=== PATIENT | female | born 1995 | race Caucasian/White ===

== ENCOUNTER 2016-04-23 22:14 | Emergency (ER) | payer OTHER ==
[2016-04-23 22:22] VITALS: RESP 16
--- NOTE | 2016-04-23 22:45 | ED ---
Fall HPI - General Chief Complaint: Fall Stated Complaint: Fall/struck head Time Seen by Provider: 04/23/16 22:35 Source: patient, RN notes reviewed Mode of arrival: wheelchair Limitations: no limitations - History of Present Illness Initial Comments: 20-year-old female presents emergency Department chief complaint head injury. Patient states she tripped over a baby gate fell backwards striking her head onto a wooden kitchen chair. Patient states that she is currently taking Lovenox prophylactically during her secondary to history of blood clots. She does complain of a headache. Patient denies blurred vision, vomiting. Patient states that she does have some nausea but still she had nausea prior to her head injury. Patient has a focal weakness. Denies any chest pain, shortness breath, neck pain. Significant other on room states that she's been acting normal. She has not taken any acetaminophen prior arrival. - Related Data Home Medications Medication Instructions Recorded Confirmed Enoxaparin [Lovenox] 40 mg SQ DAILY 04/23/16 04/23/16 Previous Rx's Medication Instructions Recorded Ibuprofen [Motrin] 200 - 400 mg PO Q6HR PRN #30 tab 09/29/13 Allergies Allergy/AdvReac Type Severity Reaction Status Date / Time No Known Allergies Allergy Verified 04/23/16 22:22 Review of Systems ROS Statement: Those systems with pertinent positive or pertinent negative responses have been documented in the HPI. ROS Other: All systems not noted in ROS Statement are negative. Past Medical History Past Medical History: No Reported History History of Any Multi-Drug Resistant Organisms: None Reported Past Surgical History: No Surgical Hx Reported Past Anesthesia/Blood Transfusion Reactions: No Reported Reaction Past Psychological History: No Psychological Hx Reported Smoking Status: Never smoker Past Alcohol Use History: Occasional Past Drug Use History: None Reported General Exam Limitations: no limitations General appearance: alert, in no apparent distress Head exam: Present: atraumatic, normocephalic, normal inspection Eye exam: Present: normal appearance, PERRL, EOMI. Absent: scleral icterus, conjunctival injection, periorbital swelling ENT exam: Present: normal exam, normal oropharynx, mucous membranes moist Neck exam: Present: normal inspection. Absent: tenderness, meningismus, lymphadenopathy Respiratory exam: Present: normal lung sounds bilaterally. Absent: respiratory distress, wheezes, rales, rhonchi, stridor Cardiovascular Exam: Present: regular rate, normal rhythm, normal heart sounds. Absent: systolic murmur, diastolic murmur, rubs, gallop, clicks Neurological exam: Present: alert, oriented X3, CN II-XII intact, reflexes normal. Absent: motor sensory deficit Skin exam: Present: warm, dry, intact, normal color. 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 Patient's CT shows no acute abnormality. Patient has no neurological deficits. Patient was given return parameters and rediscussed delayed bleed. Patient agrees to be and discharged at this time. Disposition Clinical Impression: Head injury, Fall Disposition: HOME SELF-CARE Condition: Stable Instructions: Head Injury (ED) Additional Instructions: Please return to the Emergency Department if symptoms worsen or any other concerns. Time of Disposition: 23:26
--- NOTE | 2016-04-23 22:56 | CT ---
EXAMINATION TYPE: CT brain wo con DATE OF EXAM: 04/23/2016 10:50 PM COMPARISON: NONE HISTORY: fall CT DLP: 997.20 mGycm Automated exposure control for dose reduction was used. FINDINGS: The ventricles and sulci appear normal. There is no mass effect nor midline shift. There is no sign o f intracranial hemorrhage. The calvarium is intact. IMPRESSION: Normal unenhanced head CT scan.
[2016-04-23 23:17] VITALS: BP 111/69; PULSE 90; TEMP 98.5
== END 2016-04-23 23:52 | disposition home or self-care (01) ==
LOC: EC 22:14
DX: O26.892 Other specified pregnancy related conditions, second trimester (principal); S09.90XA Unspecified injury of head, initial encounter; Z3A.16 16 weeks gestation of pregnancy; W01.0XXA Fall on same level from slipping, tripping and stumbling without subsequent striking against object, initial encounter; Z79.01 Long term (current) use of anticoagulants; Z86.718 Personal history of other venous thrombosis and embolism
CPT/HCPCS: 70450; 99283

== ENCOUNTER 2016-05-06 06:24 | Emergency (ER) | payer OTHER ==
[2016-05-06] MEDS ORDERED: SODIUM CHLORIDE 0.9% 500 ML IV STA (07:32)
--- NOTE | 2016-05-06 07:36 | ED ---
Back Pain HPI - General Chief Complaint: Back Pain/Injury Stated Complaint: chest pain Time Seen by Provider: 05/06/16 07:09 Source: patient Limitations: no limitations - History of Present Illness Initial Comments: This patient is a 20-year-old woman who complained of some left-sided back pain that came on yesterday about 11 AM. Patient states that she had taken some laundry downstairs and then when she went back upstairs noted pain. She states she felt better for a while but it returned on the afternoon when she was making dinner. She states that other than that she feels a bit fatigued or rundown. In reviewing the patient's records she is taking Lovenox daily prophylactically. The patient developed pulmonary embolus after the delivery of her last child. The patient states that she is not having any symptoms similar to the ones she had with a pulmonary embolus. She is not having pain in the chest or thoracic back. She states not having any dyspnea, tachycardia, lightheadedness or syncope, hemoptysis, fever, leg pain or swelling. MD Complaint: back pain Onset/Timin -: hour(s) Similar Symptoms Previously: No Place: home Radiation: none Severity: moderate Quality: dull Consistency: constant Improves With: none Worsens With: none Context: other Associated Symptoms: denies other symptoms - Related Data Home Medications Medication Instructions Recorded Confirmed Enoxaparin [Lovenox] 40 mg SQ DAILY 04/23/16 05/06/16 Previous Rx's Medication Instructions Recorded Amoxicillin 500 mg PO Q8H #21 capsule 05/06/16 Allergies Allergy/AdvReac Type Severity Reaction Status Date / Time No Known Allergies Allergy Verified 05/06/16 06:32 Review of Systems ROS Statement: Those systems with pertinent positive or pertinent negative responses have been documented in the HPI. ROS Other: All systems not noted in ROS Statement are negative. Constitutional: Denies: fever, chills, weakness Respiratory: Denies: cough, dyspnea Cardiovascular: Denies: chest pain, palpitations, dyspnea on exertion, orthopnea , edema, syncope Gastrointestinal: Denies: abdominal pain, nausea, vomiting, diarrhea, melena, hematochezia Genitourinary: Denies: dysuria, hematuria, discharge, abnormal menses Musculoskeletal: Reports: as per HPI, back pain Skin: Denies: rash Neurological: Denies: headache, weakness, numbness Past Medical History Past Medical History: No Reported History Additional Past Medical History / Comment(s): murmur History of Any Multi-Drug Resistant Organisms: None Reported Past Surgical History: No Surgical Hx Reported Past Anesthesia/Blood Transfusion Reactions: No Reported Reaction Past Psychological History: No Psychological Hx Reported Smoking Status: Never smoker Past Alcohol Use History: None Reported Past Drug Use History: None Reported General Exam Limitations: no limitations General appearance: alert, in no apparent distress Head exam: Present: atraumatic, normocephalic Eye exam: Present: normal appearance, PERRL. Absent: scleral icterus, conjunctival injection ENT exam: Present: normal oropharynx, mucous membranes moist Neck exam: Present: normal inspection Respiratory exam: Present: normal lung sounds bilaterally. Absent: respiratory distress, wheezes, rales, rhonchi, stridor Cardiovascular Exam: Present: regular rate, normal rhythm, normal heart sounds. Absent: systolic murmur, diastolic murmur, rubs, gallop GI/Abdominal exam: Present: soft, normal bowel sounds, other (Fundus palpable in the suprapubic area). Absent: distended, tenderness, guarding, rebound, rigid, mass Extremities exam: Present: normal inspection, normal capillary refill. Absent: pedal edema, calf tenderness Back exam: Present: normal inspection. Absent: CVA tenderness (R), CVA tenderness (L), paraspinal tenderness, vertebral tenderness Neurological exam: Present: alert Skin exam: Present: warm, dry, intact, normal color. Absent: rash Course Vital Signs 05/06/16 05/06/16 05/06/16 06:28 07:25 09:06 Temperature 98.1 F 98.7 F Pulse Rate 81 82 69 Respiratory 16 16 14 Rate Blood Pressure 122/74 112/55 112/55 O2 Sat by Pulse 100 99 100 Oximetry Medical Decision Making - Lab Data Result diagrams: 05/06/16 07:43 05/06/16 07:43 Lab Results 05/06/16 05/06/16 05/06/16 Range/Units 07:43 07:43 07:43 WBC 6.5 (3.8-10.6) k/uL RBC 3.60 L (3.80-5.40) m/uL Hgb 11.7 (11.4-16.0) gm/dL Hct 33.4 L (34.0-46.0) % MCV 92.7 (80.0-100.0) fL MCH 32.4 (25.0-35.0) pg MCHC 34.9 (31.0-37.0) g/dL RDW 13.1 (11.5-15.5) % Plt Count 237 (150-450) k/uL Neutrophils % 67 % Lymphocytes % 26 % Monocytes % 5 % Eosinophils % 1 % Basophils % 0 % Neutrophils # 4.3 (1.3-7.7) k/uL Lymphocytes # 1.7 (1.0-4.8) k/uL Monocytes # 0.3 (0-1.0) k/uL Eosinophils # 0.1 (0-0.7) k/uL Basophils # 0.0 (0-0.2) k/uL D-Dimer (<0.60) mg/L FEU Sodium 137 (137-145) mmol/L Potassium 3.9 (3.5-5.1) mmol/L Chloride 107 (98-107) mmol/L Carbon Dioxide 23 (22-30) mmol/L Anion Gap 7 mmol/L BUN 7 (7-17) mg/dL Creatinine 0.51 L (0.52-1.04) mg/dL Est GFR (MDRD) Af Amer >60 (>60 ml/min/1.73 sqM) Est GFR (MDRD) Non-Af >60 (>60 ml/min/1.73 sqM) Glucose 75 (74-99) mg/dL Calcium 8.7 (8.4-10.2) mg/dL Urine Color Yellow Urine Appearance Clear (Clear) Urine pH 6.5 (5.0-8.0) Ur Specific [place] 1.012 (1.001-1.035) Urine Protein Negative (Negative) Urine Glucose (UA) Negative (Negative) Urine Ketones Negative (Negative) Urine Blood Negative (Negative) Urine Nitrate Negative (Negative) Urine Bilirubin Negative (Negative) Urine Urobilinogen <2.0 (<2.0) mg/dL Ur Leukocyte Esterase Moderate H (Negative) Urine WBC 2 (0-5) /hpf Ur Squamous Epith Cells 3 (0-4) /hpf Urine Bacteria Few H (None) /hpf Urine Mucus Rare H (None) /hpf Urine Sperm Occasional H (None) /hpf 05/06/16 Range/Units 07:43 WBC (3.8-10.6) k/uL RBC (3.80-5.40) m/uL Hgb (11.4-16.0) gm/dL Hct (34.0-46.0) % MCV (80.0-100.0) fL MCH (25.0-35.0) pg MCHC (31.0-37.0) g/dL RDW (11.5-15.5) % Plt Count (150-450) k/uL Neutrophils % % Lymphocytes % % Monocytes % % Eosinophils % % Basophils % % Neutrophils # (1.3-7.7) k/uL Lymphocytes # (1.0-4.8) k/uL Monocytes # (0-1.0) k/uL Eosinophils # (0-0.7) k/uL Basophils # (0-0.2) k/uL D-Dimer 0.58 (<0.60) mg/L FEU Sodium (137-145) mmol/L Potassium (3.5-5.1) mmol/L Chloride (98-107) mmol/L Carbon Dioxide (22-30) mmol/L Anion Gap mmol/L BUN (7-17) mg/dL Creatinine (0.52-1.04) mg/dL Est GFR (MDRD) Af Amer (>60 ml/min/1.73 sqM) Est GFR (MDRD) Non-Af (>60 ml/min/1.73 sqM) Glucose (74-99) mg/dL Calcium (8.4-10.2) mg/dL Urine Color Urine Appearance (Clear) Urine pH (5.0-8.0) Ur Specific [place] (1.001-1.035) Urine Protein (Negative) Urine Glucose (UA) (Negative) Urine Ketones (Negative) Urine Blood (Negative) Urine Nitrate (Negative) Urine Bilirubin (Negative) Urine Urobilinogen (<2.0) mg/dL Ur Leukocyte Esterase (Negative) Urine WBC (0-5) /hpf Ur Squamous Epith Cells (0-4) /hpf Urine Bacteria (None) /hpf Urine Mucus (None) /hpf Urine Sperm (None) /hpf Disposition Clinical Impression: Mid back pain Disposition: HOME SELF-CARE Condition: Good Prescriptions: Amoxicillin 500 mg PO Q8H #21 capsule Referrals: Winston Knox MD [Primary Care Provider] - 1-2 days
[2016-05-06 08:00] LABS: Basophils % (A) 0 %; CH 33.5; CHCM 36.3; Eosinophils # (A) 0.1 k/uL (0-0.7); Eosinophils % (A) 1 %; HCT 33.4 % (34.0-46.0); HDW 2.74; HGB 11.7 gm/dL (11.4-16.0); Luc # (Auto) 0.07; Luc % (Auto) 1; Lymphocytes # (A) 1.7 k/uL (1.0-4.8); Lymphocytes % (A) 26 %; MCH 32.4 pg (25.0-35.0); MCHC 34.9 g/dL (31.0-37.0); MCV 92.7 fL (80.0-100.0); Monocytes # (A) 0.3 k/uL (0-1.0); Monocytes % (A) 5 %; Neutrophils # (A) 4.3 k/uL (1.3-7.7); Neutrophils % (A) 67 %; RDW 13.1 % (11.5-15.5); WBC 6.5 k/uL (3.8-10.6); WBC (Perox) 6.84
[2016-05-06 08:11] LABS: Appearance,Urine Clear (Clear); Bacteria,Urine Few /hpf; Bilirubin,Urine Negative (Negative); Glucose,Urine (UA) Negative (Negative); Ketones,Urine Negative (Negative); Leukocyte Esterase,Urine Moderate (Negative); Mucus,Urine Rare /hpf; Nitrite,Urine Negative (Negative); PH, Urine 6.5 (5.0-8.0); Particle Count 6572; Protein,Urine Negative (Negative); Specific Gravity,Urine 1.012 (1.001-1.035); Sperm,Urine Occasional /hpf; Squamous Epithelial Cell,Urine 3 /hpf (0-4); UA Billing (MACRO vs. MICRO) MICRO; Urobilinogen,Urine <2.0 mg/dL (<2.0); WBC,Urine 2 /hpf (0-5)
[2016-05-06 08:15] LABS: Anion Gap 7 mmol/L; Blood Urea Nitrogen 7 mg/dL (7-17); Calcium 8.7 mg/dL (8.4-10.2); Carbon Dioxide 23 mmol/L (22-30); Chloride 107 mmol/L (98-107); Glucose 75 mg/dL (74-99); Non-African American GFR(MDRD) >60 (>60 ml/min/1.73 sqM); Potassium 3.9 mmol/L (3.5-5.1); Sodium 137 mmol/L (137-145)
[2016-05-06 10:05] VITALS: BP 115/70; PULSE 66; RESP 16; TEMP 97.7
== END 2016-05-06 10:04 | disposition home or self-care (01) ==
LOC: EC 06:24
DX: M54.9 Dorsalgia, unspecified (principal); Z79.01 Long term (current) use of anticoagulants; Z86.711 Personal history of pulmonary embolism; R53.83 Other fatigue
CPT/HCPCS: 36415; 80048; 81001; 85025; 85379; 96360; 96361; 99283

== ENCOUNTER 2016-10-03 00:38 | Inpatient (IN) | payer OTHER ==
[2016-10-03] MEDS ORDERED: METHYLERGONOVINE 0.2 MG/ML 1 ML AMP IM PRN (00:53)
[2016-10-03] MEDS ORDERED: LIDOCAINE 1% (PF) 10 MG/ML (30 ML SDV) SQ PRN (00:53)
[2016-10-03] MEDS ORDERED: OXYTOCIN 10 UNIT/ML 1 ML VIAL IM PRN (00:53)
[2016-10-03] MEDS ORDERED: CARBOPROST TROMETHAMINE 250 MCG/ML 1 ML AMP IM PRN (00:53)
[2016-10-03] MEDS ORDERED: TERBUTALINE 1 MG/ML VIAL SQ PRN (00:53)
[2016-10-03] MEDS ORDERED: PENICILLIN G POTASSIUM 5,000,000 UNIT in DEXTROSE 5% IN WATER 100 ML IV STA ×2 (00:53)
[2016-10-03] MEDS ORDERED: LACTATED RINGERS 1,000 ML IV SCH (01:00)
[2016-10-03 01:15] VITALS: BMI 33.2
[2016-10-03 01:30] LABS: Basophils % (A) 0 %; CH 31.7; CHCM 34.5; Eosinophils # (A) 0.1 k/uL (0-0.7); Eosinophils % (A) 0 %; HCT 36.4 % (34.0-46.0); HDW 2.57; HGB 13.1 gm/dL (11.4-16.0); Luc # (Auto) 0.24; Luc % (Auto) 2; Lymphocytes # (A) 1.6 k/uL (1.0-4.8); Lymphocytes % (A) 13 %; MCH 33.1 pg (25.0-35.0); MCHC 35.9 g/dL (31.0-37.0); MCV 92.1 fL (80.0-100.0); Monocytes # (A) 0.6 k/uL (0-1.0); Monocytes % (A) 5 %; Neutrophils % (A) 80 %; RBC 3.95 m/uL (3.80-5.40); RDW 15.5 % (11.5-15.5); WBC 12.5 k/uL (3.8-10.6); WBC (Perox) 13.08
[2016-10-03] MEDS ORDERED: IBUPROFEN 600 MG TAB PO PRN (01:56)
[2016-10-03] MEDS ORDERED: ACETAMINOPHEN TAB 325 MG TAB PO PRN (01:56)
[2016-10-03] MEDS ORDERED: SIMETHICONE 80 MG CHEWABLE PO PRN (01:56)
[2016-10-03] MEDS ORDERED: diphenhydrAMINE 50 MG CAP PO PRN (01:56)
[2016-10-03] MEDS ORDERED: LANOLIN CREAM 5 GM TUBE TOPICAL PRN (01:56)
[2016-10-03] MEDS ORDERED: HYDROCORTISONE 2.5% RECTAL CREAM 30 GM TUBE RECTAL PRN (01:56)
[2016-10-03] MEDS ORDERED: WITCH HAZEL 1 EACH MED..PAD TOPICAL PRN (01:56)
[2016-10-03] MEDS ORDERED: diphenhydrAMINE 25 MG CAP PO PRN (01:56)
[2016-10-03] MEDS ORDERED: diphenhydrAMINE 50 MG/ML 1 ML VIAL IVP PRN ×2 (01:56)
[2016-10-03] MEDS ORDERED: BENZOCAINE/MENTHOL SPRAY 1 GM/SPRAY AEROSOL TOPICAL PRN (01:56)
[2016-10-03] MEDS ORDERED: ZOLPIDEM 5 MG TAB PO PRN (01:56)
--- NOTE | 2016-10-03 01:56 | P.HPOB ---
History of Present Illness H&P Date: 10/03/16 Chief Complaint: Labor at 38-6/7 weeks This is a 21-year-old 2 now para 2002 woman who presented to labor and delivery triage at 38-6/7 weeks' gestation. She reported onset of regular uterine contractions at approximately 9 PM the previous evening. Upon presentation to labor and delivery triage she was 6+ centimeters dilated. She is known group B strep positive. She was admitted to a birthing suite and group B strep prophylactic antibiotics were initiated. Very rapidly she was 8 cm dilated at which time I was called which is approximately 1:14 AM. She spontaneous rupture immediately thereafter at which time she was complete and . She then precipitously delivered attended by the nursing staff. was apparently vigorous at the time of delivery with nuchal cord x1. Upon my initial evaluation patient is resting comfortably in bed. The placenta spontaneously delivered approximately 2 minutes post delivery of the baby according to nursing staff. She received Pitocin in the third stage of labor. She is not complaining of any pain at this time. Her had been complicated by history of pulmonary embolism in 2013 and she is on therapeutic levels of heparin. She had no DVT or PE during this . She has a history of a 39 week delivery in 2013 of a male infant weighing 7 lbs. 5 oz. Laboratory data: Blood type is AB+, antibody screen negative, rubella immune, VDRL nonreactive, hepatitis B surface antigen negative, HIV negative, group B strep positive, glucose tolerance testing 3 hour was within normal limits. Review of Systems All systems: negative Past Medical History Past Medical History: No Reported History Additional Past Medical History / Comment(s): murmur, PE in 2013 History of Any Multi-Drug Resistant Organisms: None Reported Past Surgical History: No Surgical Hx Reported Past Anesthesia/Blood Transfusion Reactions: No Reported Reaction Past Psychological History: No Psychological Hx Reported Smoking Status: Never smoker Past Alcohol Use History: None Reported Past Drug Use History: None Reported - Past Family History Mother Family Medical History: No Reported History Medications and Allergies Home Medications Medication Instructions Recorded Confirmed Type Pnv,Calcium 72/Iron/Folic Acid 1 tab PO DAILY 06/26/16 10/03/16 History [ Plus Tablet] Heparin Sodium,Porcine [Heparin 10,000 unit SQ BID 10/03/16 10/03/16 History Sodium] Allergies Allergy/AdvReac Type Severity Reaction Status Date / Time No Known Allergies Allergy Verified 10/03/16 00:42 Exam - Vital Signs Vital signs: Vital Signs Temp Pulse Resp BP 10/03/16 00:55 96.6 F L 106 H 16 119/92 Intake and Output 10/02/16 10/02/16 10/03/16 14:59 22:59 06:59 Other: Weight 79.832 kg Patient Weight 10/03/16 06:59 Weight 79.832 kg This is a comfortable female in no active distress. Targeted physical exam is performed. The uterus is firm at the level of the umbilicus. It is massaged with no active expression of clots or heavy bleeding. The perineum, vagina and cervix are inspected and no lacerations are noted. The placenta is inspected and is noted to be calcified however otherwise intact. The patient has 1+ lower extremity edema. Assessment and Plan (1) History of pulmonary embolism Status: Acute (2) Normal spontaneous vaginal delivery Status: Acute (3) Spontaneous onset of labor Status: Acute (4) GBS (group B Streptococcus carrier), +RV culture, currently Status: Acute (5) Spontaneous rupture of membranes Status: Acute Plan: This is a 21-year-old 2 now para 2 woman who presented in advanced active a precipitous vaginal delivery and delivery of the placenta. She was group B strep positive. Infant has been taken to the special care nursery for evaluation but is vigorous with Apgars of 8 at 1 minute and 9 at 5 minutes. Patient's history is significant for pulmonary embolism in 2013. Her heparin 10 ,000 units twice a day will be reinitiated.
[2016-10-03] MEDS ORDERED: OXYTOCIN 20 UNITS/1000 ML NS 1,000 ML IV SCH (02:00)
[2016-10-03] MEDS ORDERED: PENICILLIN G POTASSIUM 2,500,000 UNIT in DEXTROSE 5% IN WATER 100 ML IV SCH ×2 (05:00)
[2016-10-03] MEDS: SENNOSIDES-DOCUSATE SODIUM 1 EACH TAB PO SCH (07:28)
[2016-10-03] MEDS: HEPARIN SODIUM,PORCINE 10,000 UNIT/ML 1 ML VIAL SQ SCH ×2 (09:21→20:55)
[2016-10-04] MEDS: SENNOSIDES-DOCUSATE SODIUM 1 EACH TAB PO SCH ×2 (00:10→21:23)
[2016-10-04] MEDS: HEPARIN SODIUM,PORCINE 10,000 UNIT/ML 1 ML VIAL SQ SCH ×2 (09:18→21:20)
[2016-10-04 09:36] LABS: Basophils % (A) 0 %; CH 31.8; CHCM 33.7; Eosinophils # (A) 0.1 k/uL (0-0.7); Eosinophils % (A) 1 %; HDW 2.45; HGB 11.8 gm/dL (11.4-16.0); Luc # (Auto) 0.16; Luc % (Auto) 1; Lymphocytes # (A) 1.5 k/uL (1.0-4.8); Lymphocytes % (A) 13 %; MCH 31.1 pg (25.0-35.0); MCHC 32.9 g/dL (31.0-37.0); MCV 94.7 fL (80.0-100.0); Mean Platelet Volume 8.2; Monocytes # (A) 0.5 k/uL (0-1.0); Monocytes % (A) 4 %; Neutrophils # (A) 9.5 k/uL (1.3-7.7); Neutrophils % (A) 81 %; RBC 3.81 m/uL (3.80-5.40); RDW 15.9 % (11.5-15.5); WBC 11.7 k/uL (3.8-10.6); WBC (Perox) 12.49
--- NOTE | 2016-10-04 10:03 | P.PN ---
Subjective Principal diagnosis: day #1 Slept well. No pain. Minimal lochia rubra. No complaints Objective - Vital Signs Vital signs: Vital Signs Temp 97.7 F 10/04/16 08:00 Pulse 76 10/04/16 08:00 Resp 16 10/04/16 08:00 BP 101/73 10/04/16 08:00 Pulse Ox 98 10/04/16 00:00 Intake & Output 10/03/16 10/04/16 10/04/16 18:59 06:59 18:59 Other: # Voids 1 - Constitutional General appearance: Present: average body habitus, cooperative - EENT Eyes: Present: PERRLA ENT: Present: hearing grossly normal - Neck Neck: Present: normal ROM - Respiratory Respiratory: bilateral: CTA - Cardiovascular Rhythm: regular - Gastrointestinal General gastrointestinal: Present: normal bowel sounds - Genitourinary Genitourinary Comment(s): Perineal body clean and dry. Minimal lochia rubra. - Integumentary Integumentary: Present: normal - Neurologic Neurologic: Present: CNII-XII intact - Musculoskeletal Musculoskeletal: Present: gait normal, strength equal bilaterally - Psychiatric Psychiatric: Present: A&O x's 3, appropriate affect, intact judgment & insight - Labs CBC & Chem 7: 10/04/16 09:12 Labs: Abnormal Lab Results - Last 24 Hours (Table) 10/04/16 Range/Units 09:12 WBC 11.7 H (3.8-10.6) k/uL RDW 15.9 H (11.5-15.5) % Neutrophils # 9.5 H (1.3-7.7) k/uL Assessment and Plan Plan: Continue care. Likely discharge home tomorrow. Time with Patient: Less than 30
--- NOTE | 2016-10-05 07:12 | P.DS ---
Providers Date of admission: 10/03/16 00:52 Expected date of discharge: 10/05/16 Attending physician: Yecenia Mcdonald Primary care physician: Jessica Bello [facility] Course: This is a 21-year-old white female 2 para 2 status post normal spontaneous vaginal delivery. Patient's was remarkable for history of PE in the past, on anticoagulation. She has been co-managed with the high risk team at [facility]. Please see dictated history and physical for details. Group B strep cultures were positive, blood type AB+, rubella status immune. Patient presented and quickly delivered a liveborn male with scores of 8 and 9 at one and 5 minutes respectively. Infant weight 3015 g or 6 lbs. 10 oz. There was a nuchal cord 1, no lacerations or defects. Please see dictated delivery note for details. Patient is on heparin therapy at this time, and will be transitioned back to Lovenox 40 mg by mouth daily upon discharge home. She is voiding, ambulating, passing flatus without difficulty. Breast-feeding is going well. Breasts are not engorged. Perineal body is clean and dry, intact. Lochia rubra is minimal. There have been no large blood clots. Her is in the nursery receiving antibiotic therapy per pediatricians. Patient is being discharged home later today in good condition. She will continue taking her Lovenox therapy daily, continue taking vitamins daily. She will use [id number] ibuprofen products as needed for pain, 200 mg pills, 3 every 6 hours when necessary. I reminded her to call me with any fevers shakes or chills, foul smelling or copious lochia, with the passage of large blood clots, with any pain not alleviated by the ibuprofen products, or indeed with any concerns. I will circumcise her son went pediatricians allow. Patient Condition at Discharge: Good Plan - Discharge Summary New Discharge Prescriptions: No Action Pnv,Calcium 72/Iron/Folic Acid [ Plus Tablet] 1 tab PO DAILY Heparin Sodium,Porcine [Heparin Sodium] 10,000 unit SQ BID Discharge Medication List Pnv,Calcium 72/Iron/Folic Acid [ Plus Tablet] 1 tab PO DAILY 06/26/16 [ History] Heparin Sodium,Porcine [Heparin Sodium] 10,000 unit SQ BID 10/03/16 [History] Follow up Appointment(s)/Referral(s): Yecenia Mcdonald MD [STAFF PHYSICIAN] - 6 Weeks Discharge Disposition: HOME SELF-CARE
--- NOTE | 2016-10-05 07:42 | P.MSEPDOC ---
Presenting Problems - Arrival Data Date of Arrival on Unit: 10/03/16 Time of Arrival on Unit: 00:50 Mode of Transport: Wheelchair - Complaint OB-Reason for Admission/Chief Complaint: Possible Onset of Labor Medical History - Information : 2 Para: 1 Term: 1 : 0 Abortions: Spontaneous or Elective: 0 Number of Living Children: 1 - Gestational Age Expected Date of Delivery: 10/11/16 Gestational Age by GEOVANNY (wks/days): 39 Weeks and 1 Days - History Complications: GBS+ Comment: History of PE patient on Heparin BID at this time. Review of Systems - Review of Systems Constitutional: No problems Breast: No problems ENT: No problems Cardiovascular: No problems Respiratory: No problems Gastrointestinal: No problems Genitourinary: No problems Musculoskeletal: No problems Neurological: No problems Skin: No problems Vital Signs - Temperature Temperature: 98.3 F - Pulse Pulse Oximetery Pulse Rate: 58 Pulse Assessment Method: Automatic Cuff Right Sitting Brachial Pulse Rate: 65 Pulse Assessment Method: Automatic Cuff - Respirations Respiratory Rate: 16 Oxygen Delivery Method: Room Air O2 Sat by Pulse Oximetry: 99 - Blood Pressure Sitting Blood Pressure: 107/62 Blood Pressure Mean: 77 Blood Pressure Source: Automatic Cuff Medical Screen Scoring (Pre) - Cervical Exam Dilation: 4-7 cm = 2 Effacement: More than 50% = 2 Membranes: Intact - Uterine Contractions Frequency: > or = 36 weeks =2 Duration: > 40 seconds = 2 Intensity: N/A - Maternal Vital Signs Maternal Temperature: N/A Maternal Blood Pressure: N/A Signs of Preeclampsia: N/A Maternal Respirations: N/A - Maternal Trauma Maternal Trauma: N/A - Assessment Baseline FHR: 135 Position: N/A Station: N/A - Total Score Total Score (Pre): 8 - Level of Risk Level of Risk: Medium (6-9) Physician Notification (Pre) - Physician Notified Physician Notified Date: 10/03/16 Physician Notified Time: 00:50 Physician/Practitioner Notifed:: Dr. Bello - Notification Comment Comment: Admit patient for labor, initiate Darnell per labor orders for postitive GBS Physician Notification (Post) - Physician Notified Physician Notified Date: 10/03/16 Physician Notified Time: 00:50 Spoke With: Eugenia New Order Received: Yes (admit for labor) Disposition - Disposition OB Disposition: Admit, LDRP Suite I agree with the RN Medical Screening Exam: Yes Risk & Benefit of care provided described in d/c instruction: Yes Diagnosis: ENCOUNTER FOR SUPRVSN OF NORMAL , THIRD TRIMESTER
[2016-10-05] MEDS: HEPARIN SODIUM,PORCINE 10,000 UNIT/ML 1 ML VIAL SQ SCH (09:30)
[2016-10-05 16:31] VITALS: BP 106/68; PULSE 76; RESP 15; TEMP 98.4
== END 2016-10-05 18:30 | disposition home or self-care (01) | DRG 774 ==
LOC: FBPOP 00:38 → 4FBP 00:52
PROVIDERS: ADMIT Obstetrics & Gynecology; ATTEND Obstetrics & Gynecology
DX: O99.824 Streptococcus B carrier state complicating childbirth (principal); O99.42 Diseases of the circulatory system complicating childbirth; O62.3 Precipitate labor; O69.81X0 Labor and delivery complicated by cord around neck, without compression, not applicable or unspecified; R01.1 Cardiac murmur, unspecified; Z37.0 Single live birth; Z3A.38 38 weeks gestation of pregnancy; Z86.711 Personal history of pulmonary embolism
CPT/HCPCS: 59025; 85025; 88307; 99213

== ENCOUNTER 2016-10-09 11:15 | Emergency (ER) | payer OTHER ==
[2016-10-09] MEDS ORDERED: SODIUM CHLORIDE 0.9% 1,000 ML IV STA (11:44)
--- NOTE | 2016-10-09 12:14 | ED ---
Fever HPI <Eren Jaramillo - Last Filed: 10/09/16 15:19> - General Source: patient, RN notes reviewed Mode of arrival: ambulatory Limitations: no limitations <Melody Lopez - Last Filed: 10/09/16 15:36> - General Chief Complaint: Fever Stated Complaint: Fever/gave Monday Time Seen by Provider: 10/09/16 11:40 - History of Present Illness Initial Comments: 21-year-old female presents to the emergency Department chief complaint of low back pain and fever. Patient states that she had a vaginal delivery on Monday. Patient states on Monday she started to have some fever like symptoms she went to the urgent care and they diagnosed with a UTI and sent her home. Patient states that she's had some back pain she's had some nausea and she admits to some more abdominal pain. Patient denies any dysuria. Patient's denies any actual vomiting or diarrhea. Patient states that she has no significant health history. Patient states she's been taking the advised that she just does not seem to get better. Patient states she was concerned due to her continued symptoms so she thought that she should be evaluated. Patient denies any recent fever, chills, shortness of breath, chest pain, vomiting, numbness or tingling, dysuria or hematuria, constipation or diarrhea, headaches or visual changes, or any other current symptoms. (Melody Lopez) - Related Data Home Medications Medication Instructions Recorded Confirmed Augmentin(Unknown) 1 tab PO Q12H 10/09/16 10/09/16 Enoxaparin [Lovenox] 40 mg SQ HS 10/09/16 10/09/16 Ibuprofen [Motrin] 400 mg PO Q6HR PRN 10/09/16 10/09/16 Allergies Allergy/AdvReac Type Severity Reaction Status Date / Time No Known Allergies Allergy Verified 10/09/16 12:11 Review of Systems ROS Other: All systems not noted in ROS Statement are negative. <Eren Jaramillo - Last Filed: 10/09/16 15:19> ROS Other: All systems not noted in ROS Statement are negative. <Melody Lopez - Last Filed: 10/09/16 15:36> ROS Statement: Those systems with pertinent positive or pertinent negative responses have been documented in the HPI. Past Medical History Past Medical History: Pulmonary Embolus (PE) Additional Past Medical History / Comment(s): murmur History of Any Multi-Drug Resistant Organisms: None Reported Past Surgical History: No Surgical Hx Reported Past Anesthesia/Blood Transfusion Reactions: No Reported Reaction Past Psychological History: No Psychological Hx Reported Smoking Status: Never smoker Past Alcohol Use History: None Reported Past Drug Use History: None Reported - Past Family History Mother Family Medical History: No Reported History <Melody Lopez - Last Filed: 10/09/16 15:36> General Exam <Eren Jaramillo - Last Filed: 10/09/16 15:19> Limitations: no limitations External exam: Present: normal external exam Speculum exam: Present: normal speculum exam, vaginal bleeding (Minimal) By manual exam: Present: normal by manual exam, uterine enlargement. Absent: uterine tenderness <Melody Lopez - Last Filed: 10/09/16 15:36> - General Exam Comments Initial Comments: General: The patient is awake and alert, in no distress, and does not appear acutely ill. Eye: Pupils are equal, round and reactive to light, extra-ocular movements are intact; there is normal conjunctiva bilaterally. No signs of icterus. Ears, nose, mouth and throat: There are moist mucous membranes and no oral lesions. Neck: The neck is supple, there is no tenderness. Cardiovascular: There is a regular rate and rhythm. No murmur, rub or gallop is appreciated. Respiratory: Lungs are clear to auscultation, respirations are non-labored, breath sounds are equal. No wheezes, stridor, rales, or rhonchi. Gastrointestinal: Soft, non-distended, mild suprapubic pain of the abdomen without masses or organomegaly noted. There is no rebound or guarding present. No CVA tenderness. Bowel sounds are unremarkable. Back: There is no tenderness to palpation in the midline. There is no obvious deformity. No rashes noted. Musculoskeletal: Normal ROM, no tenderness, There is no pedal edema. There is no calf tenderness or swelling. Sensation intact. Pulses equal bilaterally 2+. Neurological: CN II-XII intact, There are no obvious motor or sensory deficits. Coordination appears grossly intact. Speech is normal. Skin: Skin is warm and dry and no rashes or lesions are noted. Psychiatric: Cooperative, appropriate mood & affect, normal judgment. (Melody Lopez) Course <Eren Jaramillo - Last Filed: 10/09/16 15:19> <Melody Lopez - Last Filed: 10/09/16 15:36> Vital Signs 10/09/16 10/09/16 10/09/16 11:25 12:14 13:15 Temperature 98.6 F 98.5 F Pulse Rate 100 69 Respiratory 20 18 Rate Blood Pressure 100/79 106/64 O2 Sat by Pulse 99 98 Oximetry 10/09/16 13:56 Temperature 98 F Pulse Rate 64 Respiratory 18 Rate Blood Pressure 109/58 O2 Sat by Pulse 96 Oximetry - Reevaluation(s) Reevaluation #1: 10/09/16 15:19 Patient reevaluated by myself, Dr. Jaramillo. Patient is symptom-free at this time. Abdomen soft and nontender. Back without tenderness. Patient feels fine at this time. Patient is more concerned that she does have fevers despite antibiotics since Monday. Patient was at the urgent care Monday diagnosed with urinary tract infection. Patient does have some dysuria that has improved. Symptoms are similar to previous urinary tract infection. Case was discussed in detail with Dr. Martin, including ultrasound report was okay with discharge of patient. Continue Augmentin. Follow-up tomorrow. Patient was updated. ( Eren Jaramillo) Medical Decision Making - Lab Data Result diagrams: 10/09/16 12:05 10/09/16 12:05 <Eren Jaramillo - Last Filed: 10/09/16 15:19> - Lab Data Result diagrams: 10/09/16 12:05 10/09/16 12:05 <Melody Lopez - Last Filed: 10/09/16 15:36> - Medical Decision Making 21-year-old female presents emergency Department with a chief complaint of fever post . This time we did discuss the patient's lab results and ultrasound results. Patient's pelvic exam shows a nontender uterus with bleeding noted. At this time the patient will be discharged home continue Augmentin per Dr. Oconnor's request. We discussed follow-up return parameters with the patient. She is in agreement plan all cushions have been answered. She will be discharged. (Melody Lopez) - Lab Data Lab Results 10/09/16 10/09/16 10/09/16 Range/Units 12:05 12:05 12:05 WBC 8.7 (3.8-10.6) k/uL RBC 4.33 (3.80-5.40) m/uL Hgb 13.8 (11.4-16.0) gm/dL Hct 38.7 (34.0-46.0) % MCV 89.4 D (80.0-100.0) fL MCH 31.8 (25.0-35.0) pg MCHC 35.6 (31.0-37.0) g/dL RDW 15.2 (11.5-15.5) % Plt Count 290 (150-450) k/uL Neutrophils % 79 % Lymphocytes % 13 % Monocytes % 5 % Eosinophils % 1 % Basophils % 0 % Neutrophils # 6.9 (1.3-7.7) k/uL Lymphocytes # 1.1 (1.0-4.8) k/uL Monocytes # 0.5 (0-1.0) k/uL Eosinophils # 0.0 (0-0.7) k/uL Basophils # 0.0 (0-0.2) k/uL PT (9.0-12.0) sec INR (<1.1) APTT (22.0-30.0) sec Sodium 140 (137-145) mmol/L Potassium 4.2 (3.5-5.1) mmol/L Chloride 106 (98-107) mmol/L Carbon Dioxide 25 (22-30) mmol/L Anion Gap 9 mmol/L BUN 7 (7-17) mg/dL Creatinine 0.50 L (0.52-1.04) mg/dL Est GFR (MDRD) Af Amer >60 (>60 ml/min/1.73 sqM) Est GFR (MDRD) Non-Af >60 (>60 ml/min/1.73 sqM) Glucose 89 (74-99) mg/dL Plasma Lactic Acid Marlo 0.9 (0.7-2.0) mmol/L Calcium 9.2 (8.4-10.2) mg/dL Total Bilirubin 1.1 (0.2-1.3) mg/dL AST 32 (14-36) U/L ALT 57 H (9-52) U/L Alkaline Phosphatase 143 H (38-126) U/L Total Protein 7.2 (6.3-8.2) g/dL Albumin 3.7 (3.5-5.0) g/dL HCG, Quant 39.0 mIU/mL Urine Color Urine Appearance (Clear) Urine pH (5.0-8.0) Ur Specific Mozelle (1.001-1.035) Urine Protein (Negative) Urine Glucose (UA) (Negative) Urine Ketones (Negative) Urine Blood (Negative) Urine Nitrite (Negative) Urine Bilirubin (Negative) Urine Urobilinogen (<2.0) mg/dL Ur Leukocyte Esterase (Negative) Urine Bacteria (None) /hpf 10/09/16 10/09/16 Range/Units 12:05 12:05 WBC (3.8-10.6) k/uL RBC (3.80-5.40) m/uL Hgb (11.4-16.0) gm/dL Hct (34.0-46.0) % MCV (80.0-100.0) fL MCH (25.0-35.0) pg MCHC (31.0-37.0) g/dL RDW (11.5-15.5) % Plt Count (150-450) k/uL Neutrophils % % Lymphocytes % % Monocytes % % Eosinophils % % Basophils % % Neutrophils # (1.3-7.7) k/uL Lymphocytes # (1.0-4.8) k/uL Monocytes # (0-1.0) k/uL Eosinophils # (0-0.7) k/uL Basophils # (0-0.2) k/uL PT 11.1 (9.0-12.0) sec INR 1.1 (<1.1) APTT 22.1 (22.0-30.0) sec Sodium (137-145) mmol/L Potassium (3.5-5.1) mmol/L Chloride (98-107) mmol/L Carbon Dioxide (22-30) mmol/L Anion Gap mmol/L BUN (7-17) mg/dL Creatinine (0.52-1.04) mg/dL Est GFR (MDRD) Af Amer (>60 ml/min/1.73 sqM) Est GFR (MDRD) Non-Af (>60 ml/min/1.73 sqM) Glucose (74-99) mg/dL Plasma Lactic Acid Marlo (0.7-2.0) mmol/L Calcium (8.4-10.2) mg/dL Total Bilirubin (0.2-1.3) mg/dL AST (14-36) U/L ALT (9-52) U/L Alkaline Phosphatase (38-126) U/L Total Protein (6.3-8.2) g/dL Albumin (3.5-5.0) g/dL HCG, Quant mIU/mL Urine Color Colorless Urine Appearance Clear (Clear) Urine pH 6.5 (5.0-8.0) Ur Specific Mozelle 1.001 (1.001-1.035) Urine Protein Negative (Negative) Urine Glucose (UA) Negative (Negative) Urine Ketones Negative (Negative) Urine Blood Small H (Negative) Urine Nitrite Negative (Negative) Urine Bilirubin Negative (Negative) Urine Urobilinogen <2.0 (<2.0) mg/dL Ur Leukocyte Esterase Negative (Negative) Urine Bacteria Rare H (None) /hpf Disposition <Eren Jaramillo - Last Filed: 10/09/16 15:19> Time of Disposition: 15:36 <Melody Lopez - Last Filed: 10/09/16 15:36> Clinical Impression: Vaginal bleeding, Flank pain, Elevated liver enzymes Disposition: HOME SELF-CARE Condition: Stable Instructions: Abdominal Pain (ED) Additional Instructions: Please use medication as discussed. Please follow up with family doctor if symptoms have not improved over the next two days. Please return to the emergency room if your symptoms increase or worsen or for any other concerns. Referrals: Winston Knox MD [Primary Care Provider] - 1-2 days
[2016-10-09 12:36] LABS: Basophils % (A) 0 %; CH 31.7; CHCM 35.6; Eosinophils % (A) 1 %; HCT 38.7 % (34.0-46.0); HDW 2.69; HGB 13.8 gm/dL (11.4-16.0); Luc # (Auto) 0.17; Luc % (Auto) 2; Lymphocytes # (A) 1.1 k/uL (1.0-4.8); Lymphocytes % (A) 13 %; MCH 31.8 pg (25.0-35.0); MCHC 35.6 g/dL (31.0-37.0); Mean Platelet Volume 7.7; Monocytes # (A) 0.5 k/uL (0-1.0); Monocytes % (A) 5 %; Neutrophils # (A) 6.9 k/uL (1.3-7.7); Neutrophils % (A) 79 %; RBC 4.33 m/uL (3.80-5.40); RDW 15.2 % (11.5-15.5); WBC 8.7 k/uL (3.8-10.6); WBC (Perox) 8.38
[2016-10-09 12:38] LABS: Appearance,Urine Clear (Clear); Bacteria,Urine Rare /hpf; Bilirubin,Urine Negative (Negative); Glucose,Urine (UA) Negative (Negative); Ketones,Urine Negative (Negative); Leukocyte Esterase,Urine Negative (Negative); MCV 89.4 fL (80.0-100.0); Nitrite,Urine Negative (Negative); PH, Urine 6.5 (5.0-8.0); Particle Count 118; Protein,Urine Negative (Negative); Specific Gravity,Urine 1.001 (1.001-1.035); UA Billing (MACRO vs. MICRO) MICRO; Urobilinogen,Urine <2.0 mg/dL (<2.0)
[2016-10-09 12:45] LABS: ALT 57 U/L (9-52); AST 32 U/L (14-36); Alkaline Phosphatase 143 U/L (38-126); Anion Gap 9 mmol/L; Blood Urea Nitrogen 7 mg/dL (7-17); Calcium 9.2 mg/dL (8.4-10.2); Carbon Dioxide 25 mmol/L (22-30); Chloride 106 mmol/L (98-107); Glucose 89 mg/dL (74-99); Non-African American GFR(MDRD) >60 (>60 ml/min/1.73 sqM); Potassium 4.2 mmol/L (3.5-5.1); Sodium 140 mmol/L (137-145); Total Bilirubin 1.1 mg/dL (0.2-1.3); Total Protein 7.2 g/dL (6.3-8.2)
[2016-10-09 12:46] LABS: INR 1.1 (<1.1); Partial Thromboplastin Time 22.1 sec (22.0-30.0); Prothrombin Time 11.1 sec (9.0-12.0)
--- NOTE | 2016-10-09 14:39 | US ---
EXAMINATION TYPE: US pelvic complete DATE OF EXAM: 10/09/2016 COMPARISON: NONE CLINICAL HISTORY: Pain. Patient delivered baby on Monday. Patient has had fever since monday and tonny ng treated for UTI- Augmentin. TECHNIQUE: Transabdominal (TA) Date of LMP: Post delivery EXAM MEASUREMENTS: Uterus: 17.9 x 12.3 x 8.4 cm Right Ovary: 2.9 x 1.9 x 1.5 cm Left Ovary: 2.8 x 1.2 x 1.7 cm Endometrium: 3.1 cm 1. Uterus: Anteverted Enlarged. Heterogenous. 2. Endometrium: Heterogenous with internal debris. 3. Right Ovary: wnl 4. Left Ovary: wnl Spectral, color and waveform doppler imaging shows good arterial and venous flow within the ovaries ; there is no evidence for ovarian torsion. 5. Bilateral Adnexa: wnl 6. Posterior cul-de-sac: no free fluid Cervix= wnl IMPRESSION: 1. Uterine enlargement with myometrial heterogeneity. There is also heterogeneity and internal debris within the endometrium.
[2016-10-09 15:36] VITALS: BP 111/70; PULSE 60; RESP 16; TEMP 97
== END 2016-10-09 15:43 | disposition home or self-care (01) ==
LOC: EC 11:15
DX: O72.2 Delayed and secondary postpartum hemorrhage (principal); O90.89 Other complications of the puerperium, not elsewhere classified; O99.89 Other specified diseases and conditions complicating pregnancy, childbirth and the puerperium; R79.89 Other specified abnormal findings of blood chemistry; M54.5 Low back pain; R11.0 Nausea; O86.4 Pyrexia of unknown origin following delivery; Z79.01 Long term (current) use of anticoagulants; Z86.711 Personal history of pulmonary embolism
CPT/HCPCS: 36415; 76856; 80053; 81001; 83605; 84702; 85025; 85610; 85730; 87040; 87086; 93975; 96360; 99284

== ENCOUNTER → 2020-03-11 | Outpatient (CLI) | payer BC | END | disposition home or self-care (01) | LOC: LABWHC1 14:48 | PROVIDERS: ATTEND Obstetrics & Gynecology | DX: O20.0 Threatened abortion (principal) | CPT/HCPCS: 36415; 84702 ==

== ENCOUNTER → 2020-03-13 | Outpatient (CLI) | payer BC | END | disposition home or self-care (01) | LOC: LABWHC1 14:52 | PROVIDERS: ATTEND Obstetrics & Gynecology | DX: O20.0 Threatened abortion (principal) | CPT/HCPCS: 36415; 84702 ==

== ENCOUNTER 2020-10-27 15:35 | Inpatient (IN) | payer BC ==
[2020-10-27] MEDS ORDERED: TERBUTALINE 1 MG/ML VIAL SQ PRN (17:40)
[2020-10-27] MEDS ORDERED: LIDOCAINE 0.5% (PF) 5 MG/ML (50 ML SDV) SQ PRN (17:40)
[2020-10-27] MEDS ORDERED: OXYTOCIN 10 UNIT/ML 1 ML VIAL IM PRN (17:40)
[2020-10-27] MEDS ORDERED: METHYLERGONOVINE 0.2 MG/ML 1 ML AMP IM PRN (17:40)
[2020-10-27] MEDS ORDERED: CARBOPROST TROMETHAMINE 250 MCG/ML 1 ML AMP IM PRN (17:40)
[2020-10-27] MEDS ORDERED: LACTATED RINGERS 1,000 ML IV SCH (17:45)
[2020-10-27] MEDS ORDERED: OXYTOCIN 30 UNITS/500 ML NS 30 UNIT in SALINE 1 500ML.BAG IV SCH (17:45)
[2020-10-27 18:03] LABS: Basophils % (A) 0 %; Eosinophils # (A) 0.1 k/uL (0-0.7); Eosinophils % (A) 1 %; HCT 36.7 % (34.0-46.0); HGB 12.1 gm/dL (11.4-16.0); Lymphocytes # (A) 1.6 k/uL (1.0-4.8); Lymphocytes % (A) 18 %; MCV 97.2 fL (80.0-100.0); Mean Platelet Volume 9.1; Monocytes # (A) 0.4 k/uL (0-1.0); Monocytes % (A) 4 %; Neutrophils % (A) 75 %; Platelet Count 221 k/uL (150-450); RBC 3.77 m/uL (3.80-5.40); RDW 14.9 % (11.5-15.5); WBC 9.3 k/uL (3.8-10.6)
--- NOTE | 2020-10-27 18:23 | P.HPOB ---
History of Present Illness H&P Date: 10/27/20 Chief Complaint: Strong regular uterine contractions This is a 25-year-old white female 3 para 2002 EDC 11/13/2020 at 37-4/7 weeks' gestation. Patient presents tonight with strong regular uterine contractions. She last took her Lovenox last night at 9:15 PM. She denies fluid leakage or vaginal bleeding. Past history is significant for bilateral pulmonary emboli in 2013 when on a control pill. history blood type is AB+, rubella status immune. Urine culture, hepatitis B surface antigen, gonorrhea and chlamydia cultures, group B strep cultures all negative. One-hour Glucola 123. Current medications Lovenox 40 mg subcutaneously daily. vitamin daily. ALLERGIES none known. Social history patient is , she has never been a smoker, she denies alcohol or drug use. Family history is significant for myocardial infarction. Past surgical history is negative. On exam patient is 5 foot 1 inch, 174 pounds, blood pressure 120/63, pulse 73, respirations 16, temperature 97.7. The general physical exam is within normal limits. Chest is clear in all levine. Extremities reveal no edema. Cervix is 8 cm dilated, 80% effaced, -1 station, vertex presentation. Artificial amniorrhexis reveals clear fluid. heart rate is consistent with reactive NST with frequent accelerations. Uterine contractions are occurring every 2-4 minutes apart. Impression: 37-4/7 weeks intrauterine , in active spontaneous labor. L ovenox daily, last received 21 hours ago. All signs reassuring. Plan: Continue close maternal and surveillance. Analgesic options offered to the patient and discussed, at this time she is declining. Continue close maternal and surveillance. Anticipate normal spontaneous vaginal deli very. Review of Systems Constitutional: Reports as per HPI Past Medical History Past Medical History: Pulmonary Embolus (PE) Additional Past Medical History / Comment(s): murmur History of Any Multi-Drug Resistant Organisms: None Reported Past Surgical History: No Surgical Hx Reported Past Anesthesia/Blood Transfusion Reactions: No Reported Reaction Past Psychological History: No Psychological Hx Reported Smoking Status: Never smoker Past Alcohol Use History: None Reported Past Drug Use History: None Reported - Past Family History Mother Family Medical History: No Reported History Medications and Allergies Home Medications Medication Instructions Recorded Confirmed Type Enoxaparin [Lovenox] 40 mg SQ HS 10/09/16 10/27/20 History Iron 18 mg PO DAILY 10/27/20 10/27/20 History Pnv No.95/Ferrous Fum/Folic AC 1 each PO DAILY 10/27/20 10/27/20 History [ Multivitamin Tablet] Allergies Allergy/AdvReac Type Severity Reaction Status Date / Time No Known Allergies Allergy Verified 10/27/20 15:48 Exam Vital Signs Temp Pulse Resp BP Pulse Ox 10/27/20 17:18 97.2 F L 73 16 120/63 97 Intake and Output 10/27/20 10/27/20 10/27/20 06:59 14:59 22:59 Other: Weight 78.925 kg See dictation under HPI please Results Result Diagrams: 10/27/20 17:37 Abnormal Lab Results - Last 24 Hours (Table) 10/27/20 Range/Units 17:37 RBC 3.77 L (3.80-5.40) m/uL Assessment and Plan Assessment: 37-4/7 weeks intrauterine , early labor. All signs reassuring. Lovenox last taken 21 hours ago. Patient declining option for analgesia at this time. Plan: Continue close maternal and surveillance. Anticipate normal spontaneous vaginal delivery. Time with Patient: Less than 30
[2020-10-27] MEDS: LACTATED RINGERS 1,000 ML IV SCH (18:30)
[2020-10-27] MEDS ORDERED: SIMETHICONE 80 MG CHEWABLE PO PRN (19:28)
[2020-10-27] MEDS ORDERED: diphenhydrAMINE 50 MG/ML 1 ML VIAL IVP PRN ×2 (19:28)
[2020-10-27] MEDS ORDERED: BENZOCAINE/MENTHOL SPRAY 1 GM/SPRAY AEROSOL TOPICAL PRN (19:28)
[2020-10-27] MEDS ORDERED: diphenhydrAMINE 25 MG CAP PO PRN (19:28)
[2020-10-27] MEDS ORDERED: diphenhydrAMINE 50 MG CAP PO PRN (19:28)
[2020-10-27] MEDS ORDERED: LANOLIN CREAM 5 GM TUBE TOPICAL PRN (19:28)
[2020-10-27] MEDS ORDERED: ZOLPIDEM 5 MG TAB PO PRN (19:28)
[2020-10-27] MEDS ORDERED: HYDROCORTISONE 2.5% RECTAL CREAM 30 GM TUBE RECTAL PRN (19:28)
[2020-10-27] MEDS ORDERED: ACETAMINOPHEN TAB 325 MG TAB PO PRN (19:28)
--- NOTE | 2020-10-27 19:28 | P.PROBDLV ---
Vaginal Delivery Note - . Vaginal Delivery Note: This is a 25-year-old white female 3 para 2001 EDC 11/13/2020 at 37-4/7 weeks' gestation. Patient presented with strong regular uterine contractions at home, with advanced cervical dilation noted. Fetus is been active throughout the . History is remarkable for bilateral PEs in 2013, on Lovenox 40 mg subcu daily. Otherwise unremarkable , blood type B positive, rubella status immune, group B strep cultures negative. Please see my dictated history and physical for details. Artificial amniorrhexis revealed clear fluid. Patient declined any option for analgesia. She progressed very well through the first stage of labor and became completely dilated at 1908 hrs. Perineal body was prepped and draped in usual sterile fashion. With excellent maternal expulsive efforts the head delivered occiput anterior and restituted accordingly. There was a nuchal cord 1 that was reduced. The left or anterior shoulder was delivered easily from underneath the pubic symphysis at which time the oropharynx, nasopharynx, and external nares were all bulb suction. Patient was officially delivered of a liveborn female infant at 1913 hrs. Umbilical cord was doubly clamped and ligated, baby was handed to waiting nurses for evaluation where scores of 8 and 9 at one and 5 minutes respectively were given. The center delivered spontaneously, it was inspected and noted to be intact with trivascular cord at 1913 hrs. This time the perineal body was redraped. Careful inspection of the cervix, vagina, perineum, periurethral, and perirectal areas revealed a very small laceration just beneath the clitoris. This was injected with 1% lidocaine and repaired with a single [id number] suture of 3-0 Rapide. weighed 6 lbs. 4 oz. or 2830 g. All sponge needle and enhancement counts are correct. Fundus is firm and in the midline, symmetric and 18 week size upon completion of delivery. Estimated blood loss 200 mL's. Patient and her are allowed to begin the bonding experience in the LDR.
[2020-10-27] MEDS: IBUPROFEN 600 MG TAB PO PRN (19:48)
[2020-10-27] MEDS: SENNOSIDES-DOCUSATE SODIUM 1 EACH TAB PO SCH (19:48)
[2020-10-28] MEDS: IBUPROFEN 600 MG TAB PO PRN (04:56)
[2020-10-28 05:14] VITALS: RESP 16
--- NOTE | 2020-10-28 07:53 | P.DS ---
Providers Date of admission: 10/27/20 17:14 Expected date of discharge: 10/28/20 Attending physician: Yecenia Mcdonald Primary care physician: Stated None Hospital Course: This is a 25-year-old white female 3 para 2001 EDC 11/13/2020 at 37-4/7 weeks' gestation who presented yesterday in active spontaneous labor. Group strep cultures negative, rubella status immune, blood type AB+. is remarkable for patient being on Lovenox daily for history of bilateral PEs in 2013. Please see my dictated history and physical for details. Artificial amniorrhexis revealed clear fluid. Patient quickly delivered a liveborn female infant vaginally, scores 8 and 9 at one and 5 minutes respectively. There was a nuchal cord 1 that was reduced. Infant weighed 6 lbs. 4 oz. or 2830 g. Estimated blood loss 200 mL's. There was a small first- degree perineal laceration that was incurred and repaired. Please see dictated delivery note for details. The swelling the patient is doing well. She is voiding, ambulating, passing f latus without difficulty. Vital signs are stable and she is afebrile. Fundus is firm and in the midline, symmetric and 18 week size. Extremities are negative for edema. Chest is clear in all levine. Bleeding is minimal. No large blood clots had been passed. Breast-feeding is going well. Patient is judged to be in excellent condition for discharge home. She will follow-up with me in the office in 6 weeks. She will resume her Lovenox 40 mg subcu this evening. She will call with any fevers shakes or chills, foul smelling or copious lochia, with the passage of large blood clots, with any pain not alleviated by [id number] products, or indeed with any concerns. We have briefly discussed contraceptive options and she will discuss this further with me in the office in 6 weeks. Assessment: Doing well day #1 Patient Condition at Discharge: Good Plan - Discharge Summary Discharge Rx Participant: No New Discharge Prescriptions: No Action Enoxaparin [Lovenox] 40 mg SQ HS Iron 18 mg PO DAILY Pnv No.95/Ferrous Fum/Folic AC [ Multivitamin Tablet] 1 each PO DAILY Discharge Medication List Enoxaparin [Lovenox] 40 mg SQ HS 07/02/17 [History] Iron 18 mg PO DAILY 10/27/20 [History] Pnv No.95/Ferrous Fum/Folic AC [ Multivitamin Tablet] 1 each PO DAILY 10/27/20 [History] Follow up Appointment(s)/Referral(s): Yecenia Mcdonald MD [STAFF PHYSICIAN] - 6 Weeks
[2020-10-28] MEDS: SENNOSIDES-DOCUSATE SODIUM 1 EACH TAB PO SCH ×2 (08:01→22:49)
[2020-10-28] MEDS ORDERED: ENOXAPARIN 40 MG/0.4 ML SYRINGE SQ SCH (21:30)
[2020-10-29] MEDS: LACTATED RINGERS 1,000 ML IV SCH (05:49)
[2020-10-29] MEDS: IBUPROFEN 600 MG TAB PO PRN (07:55)
[2020-10-29 10:19] VITALS: BP 95/63; PULSE 74; TEMP 97.7
[2020-10-29] MEDS: SENNOSIDES-DOCUSATE SODIUM 1 EACH TAB PO SCH (10:19)
== END 2020-10-29 15:10 | disposition home or self-care (01) | DRG 807 ==
LOC: FBPOP 15:35 → 4FBP 17:14
PROVIDERS: ADMIT Obstetrics & Gynecology; ATTEND Obstetrics & Gynecology
PROC: 10E0XZZ Delivery of Products of Conception, External Approach (ICD-10-PCS; principal; 2020-10-27)
PROC: 10907ZC Drainage of Amniotic Fluid, Therapeutic from Products of Conception, Via Natural or Artificial Opening (ICD-10-PCS; 2020-10-27)
PROC: 3E033VJ Introduction of Other Hormone into Peripheral Vein, Percutaneous Approach (ICD-10-PCS; 2020-10-27)
PROC: 4A0HX4Z Measurement of Products of Conception, Cardiac Electrical Activity, External Approach (ICD-10-PCS; 2020-10-27)
PROC: 0HQ9XZZ Repair Perineum Skin, External Approach (ICD-10-PCS; 2020-10-27)
DX: O76 Abnormality in fetal heart rate and rhythm complicating labor and delivery (principal); Z37.0 Single live birth; O71.82 Other specified trauma to perineum and vulva; O69.81X0 Labor and delivery complicated by cord around neck, without compression, not applicable or unspecified; Z3A.37 37 weeks gestation of pregnancy; Z79.01 Long term (current) use of anticoagulants; Z86.711 Personal history of pulmonary embolism; Z86.79 Personal history of other diseases of the circulatory system
CPT/HCPCS: 59025; 85025; 86850; 86900; 86901; 99213